=== PATIENT | female | born 1960 | race American Indian/Alaskan Native ===

== ENCOUNTER 2016-10-07 01:02 | Emergency (ER) | payer BC, OTHER ==
[2016-10-07 01:58] LABS: Basophils % (Auto) 0.3 % (0.0-1.8); Eosinophils % (Auto) 1.2 % (0.0-4.3); Hematocrit 38.3 % (30.3-42.9); Hemoglobin 12.7 gm/dl (10.1-14.3); Mean Corpuscular HGB Conc 33 % (30-34); Mean Corpuscular Hemoglobin 29 pg (28-32); Mean Corpuscular Volume 86 fl (79-97); Platelet Count 169 K/mm3 (140-440); Red Blood Count 4.44 M/mm3 (3.65-5.03); Red Cell Distribution Width 13.1 % (13.2-15.2); White Blood Count 6.8 K/mm3 (4.5-11.0)
[2016-10-07 02:13] LABS: INR 0.92 (0.87-1.13)
[2016-10-07 02:14] LABS: Partial Thromboplastin Time 28.6 Sec. (24.2-36.6)
[2016-10-07 02:15] LABS: Alanine Aminotransferase 22 units/L (7-56); Albumin 3.9 g/dL (3.9-5); Albumin/Globulin Ratio 1.1 %; Alkaline Phosphatase 71 units/L (35-129); Anion Gap 19 mmol/L; BUN/Creatinine Ratio 25.71; Blood Urea Nitrogen 18 mg/dL (7-17); Carbon Dioxide 25 mmol/L (22-30); Chloride 100.3 mmol/L (98-107); Glucose 134 mg/dL (65-100); Lipase 15 units/L (13-60); Potassium 3.9 mmol/L (3.6-5.0); Sodium 140 mmol/L (137-145); Total Protein 7.3 g/dL (6.3-8.2)
[2016-10-07 03:10] LABS: Bilirubin,Urine NEG (Negative); Blood,Urine NEG (Negative); Ketones,Urine NEG (Negative); Leukocyte Esterase,Urine NEG (Negative); Mucus,Urine FEW /HPF; Nitrite,Urine NEG (Negative); Protein,Urine <15 mg/dL mg/dL (Negative); Urobilinogen,Urine < 2.0 mg/dL (<2.0)
[2016-10-07] MEDS ORDERED: REGLAN IV ONE (08:14)
[2016-10-07] MEDS ORDERED: NACL 0.9% 1000 ML 1,000 ML IV ONE (08:14)
[2016-10-07] MEDS ORDERED: TORADOL IV ONE (08:15)
--- NOTE | 2016-10-07 09:14 | XRay Report ---
Chest 2 views: History: Shortness of breath. Findings: Normal cardiomediastinal silhouette the trachea is midline. No consolidation, pneumothorax or pleural effusion. Impression: No acute cardiopulmonary findings.
[2016-10-07] MEDS ORDERED: TORADOL IM ONE (09:31)
[2016-10-07] MEDS ORDERED: REGLAN PO ONE (09:32)
--- NOTE | 2016-10-07 09:36 | Emergency Department Report ---
HPI - General Chief Complaint: Chest Pain Time Seen by Provider: 10/07/16 07:43 - HPI HPI: The patient is a 56-year-old female presents for evaluation of chest pain. The patient reports chest pain since 5 PM yesterday evening, greater than 12 hours prior to my evaluation, bilateral and location, mild, currently 2 out of 10 in severity, squeezing in quality, associated with palpitations, transient lightheadedness elicited with standing in position changes, nausea, nonbilious, nonbloody emesis, and associated with palpitations and mild episodic shortness of breath. The patient denies fever, neck pain, parasthesias, cough, hemoptysis , syncope, unilateral leg swelling, calf muscle pain, hormone replacement therapy. Patient also denies cocaine or other stimulant use, history of DVT or PE, recent immobilization, or history of cancer. ED Past Medical Hx - Past Medical History Previous Medical History?: Yes Additional medical history: Chronic Left Hip Pain - Surgical History Past Surgical History?: Yes Additional Surgical History: Tubal, Hyst - Social History Smoking Status: Never Smoker Substance Use Type: None - Medications Home Medications: Home Medications Medication Instructions Recorded Confirmed Last Taken Type Cyclobenzaprine HCl [Flexeril 5 MG 5 mg PO Q8HR PRN #15 tab 10/07/16 Unknown Rx TAB] Ondansetron [Zofran TAB] 4 mg PO Q8HR PRN #15 tablet 10/07/16 Unknown Rx ED Review of Systems ROS: Stated complaint: CHEST PAIN/SOB Other details as noted in HPI Constitutional: denies: fever ENT: denies: throat or neck pain Respiratory: reports shortness of breath Cardiovascular: reports chest pain Endocrine: denies unexplained weight loss or gain Gastrointestinal: denies: abdominal pain reports nausea Genitourinary: denies: dysuria Musculoskeletal: denies: leg swelling Skin: denies: rash Neurological: denies: headache Hematological/Lymphatic: denies: easy bleeding or easy bruising Psych: denies sadness or hopelessness Physical Exam - Physical Exam Vital Signs: Vital Signs 10/07/16 10/07/16 10/07/16 01:10 05:41 07:28 Temperature 98.5 F Pulse Rate 98 H 98 H Respiratory 20 12 Rate Blood Pressure 162/95 Blood Pressure 171/102 [Right] O2 Sat by Pulse 100 100 99 Oximetry 10/07/16 07:30 Temperature Pulse Rate 71 Respiratory 26 H Rate Blood Pressure 159/82 Blood Pressure [Right] O2 Sat by Pulse 99 Oximetry Physical Exam: General: well-nourished, well-developed, no acute distress Head: Normocephalic, atraumatic Eyes: normal sclera ENT: Mucous membranes are pale and dry Neck: No neck stiffness, no cervical adenopathy Respiratory: Breath sounds equal bilaterally, no wheezing, rales, or rhonchi Cardio: S1 and S2 present, no murmurs, rubs, gallops, capillary refill is delayed Abdomen: Normoactive bowel sounds, soft abdomen, no rigidity, no guarding or rebound tenderness Chest WALL/Back: No tenderness to palpation of the chest wall, no CVA tenderness with percussion Musc: No pitting edema Skin: No rash Neuro: no facial drooping, normal speech Psych: Normal affect ED Course Vital Signs 10/07/16 10/07/16 10/07/16 01:10 05:41 07:28 Temperature 98.5 F Pulse Rate 98 H 98 H Respiratory 20 12 Rate Blood Pressure 162/95 Blood Pressure 171/102 [Right] O2 Sat by Pulse 100 100 99 Oximetry 10/07/16 07:30 Temperature Pulse Rate 71 Respiratory 26 H Rate Blood Pressure 159/82 Blood Pressure [Right] O2 Sat by Pulse 99 Oximetry ED Medical Decision Making - Lab Data Result diagrams: 10/07/16 01:37 10/07/16 01:37 - Medical Decision Making The patient was seen and examined by myself. The patient is placed on a medical technologist blood bank and continuous pulse ox. On initial evaluation, the patient was found to be in no distress. EKG was negative for findings suggestive of acute cardiac infarct. Labs and imaging are obtained. The patient is given an IM dose of Toradol for pain and Reglan for nausea. The patient finds IV fluid normal saline for treatment of her dehydration. Chest x-ray is negative for pneumothorax, focal consolidation, pulmonary vascular congestion, pleural effusion, or other obvious acute cardiopulmonary disease process. Lab results were non-concerning including levels of troponin, WBC, hemoglobin, hematocrit, electrolytes, renal function. The patient was reevaluated and reported that their symptoms were markedly improved. As the patient has a JOSE risk score less than 2, and a well's score less than 2, the patient is at low risk of ACS or pulmonary emboli etiology of their symptoms. The patient is stable for discharge with outpatient follow-up. The patient is given follow-up and return instructions. The patient expressed understanding and agreed with the plan. The patient is discharged in stable condition. Critical care attestation.: If time is entered above; I have spent that time in minutes in the direct care of this critically ill patient, excluding procedure time. ED Disposition Clinical Impression: Acute chest pain, Dehydration, Orthostatic lightheadedness Nausea & vomiting Qualifiers: Vomiting type: unspecified Vomiting Intractability: non-intractable Qualified Code(s): R11.2 - Nausea with vomiting, unspecified Disposition: DISCHARGED TO HOME OR SELFCARE Is pt being admited?: No Does the pt Need Aspirin: No Condition: Stable Instructions: Chest Pain (ED), Dehydration (ED), Acute Nausea and Vomiting (ED) , Lightheadedness (ED) Prescriptions: Cyclobenzaprine HCl [Flexeril 5 MG TAB] 5 mg PO Q8HR PRN #15 tab PRN Reason: Pain Ondansetron [Zofran TAB] 4 mg PO Q8HR PRN #15 tablet PRN Reason: Nausea Referrals: PRIMARY CARE, [Primary Care Provider] - 3-5 Days Forms: Accompanied Note Time of Disposition: 09:32
[2016-10-07 10:14] VITALS: BP 148/78
== END 2016-10-07 10:10 | disposition home or self-care (01) ==
LOC: ED 01:02
DX: E86.0 Dehydration (principal); R07.89 Other chest pain; R42 Dizziness and giddiness; R11.2 Nausea with vomiting, unspecified; G89.29 Other chronic pain
CPT/HCPCS: 36415; 71020; 80053; 81001; 83690; 84484; 85025; 85379; 85610; 85730; 93005; 93010; 96372; 99285; J1885; J2765; J7030